=== PATIENT | female | born 1990 | race Caucasian/White ===

== ENCOUNTER 2018-09-04 07:52 | Emergency (ER) | payer OTHER ==
[~2018-09-04] VITALS: Ht 167.6 cm; Wt 86.2 kg
[~2018-09-04 07:52] MED LIST: AMOXICILLIN 50500 MG PO; AUGMENTIN 875875 MG PO; NOHOMEMEDICATIONS; NORCO 5-325 TA1 EAC1 PO; PEPCID20 MG PO; PREDNISONE 10 M10 MG PO; PREDNISONE 20 M20 M1 PO; PROMETHAZINE-D120 ML PO; PROMETHAZINE/C118 ML PO; VENTOLIN HFA INH8 GM IH
[2018-09-04] MEDS ORDERED: TRAMADOL 50 MG50 MG PO (08:07)
[2018-09-04] MEDS ORDERED: FLEXERIL PO (08:07)
[2018-09-04 08:13] VITALS: BP 132/80
== END 2018-09-04 08:13 | disposition home or self-care (01) ==
LOC: M.ERS 07:52
DX: S39.012A Strain of muscle, fascia and tendon of lower back, initial encounter (principal); J45.909 Unspecified asthma, uncomplicated; X58.XXXA Exposure to other specified factors, initial encounter; Y93.89 Activity, other specified; Y92.89 Other specified places as the place of occurrence of the external cause; Y99.8 Other external cause status

== ENCOUNTER 2020-05-20 20:05 | Emergency (ER) | payer OTHER ==
[~2020-05-20] VITALS: Ht 165.1 cm; Wt 86.2 kg
[~2020-05-20 20:05] MED LIST changes: +FLEXERIL PO; +TRAMADOL 50 MG50 MG PO
[2020-05-20] MEDS ORDERED: SPRINTEC1 EACH PO (20:23)
[2020-05-20] MEDS ORDERED: PREDNISONE 20 M20 M1 PO (21:50)
[2020-05-20] MEDS ORDERED: ZPAK PO (21:50)
[2020-05-20] MEDS ORDERED: ZOFRAN ODT4 MG SUBLING (21:50)
[2020-05-20 22:26] VITALS: BP 115/79
== END 2020-05-20 22:02 | disposition home or self-care (01) ==
LOC: M.ERS 20:05
DX: U07.1 COVID-19 (principal); J45.909 Unspecified asthma, uncomplicated; F17.210 Nicotine dependence, cigarettes, uncomplicated; Z79.899 Other long term (current) drug therapy